=== PATIENT | female | born 1970 | race Caucasian/White ===

== ENCOUNTER 2020-11-27 07:35 | Outpatient (CLI) | payer OTHER, SELFPAY ==
--- NOTE | ~2020-11-27 | MM_ITS ---
EXAMINATION: MM screening [facility] BI w [facility] HISTORY: Screening TECHNIQUE: Craniocaudal and mediolateral oblique 3-D tomosynthesis images were obtained and synthetic 2-D images were generated. CAD analysis was submitted and interpreted. COMPARISON: Comparison to multiple prior studies sequentially, with oldest reviewed study dated 07/31. BREAST PARENCHYMAL COMPOSITION: There are scattered areas of fibroglandular density. FINDINGS: There is no evidence of suspicious mass, calcification, or architectural distortion to sugg est malignancy in either breast. There has been no suspicious interval change. IMPRESSION: 1. No mammographic evidence of malignancy. 2. Recommend routine screening mammography in one year. BI-RADS Category 1: Negative Reviewed, dictated and finalized at location A. [employer]
== END 2020-11-27 07:36 | disposition home or self-care (01) ==
PROVIDERS: PCP Internal Medicine; Visit Provider Nurse Practitioner Obstetrics & Gynecology
DX: Z12.31 Encounter for screening mammogram for malignant neoplasm of breast (principal)
CPT/HCPCS: 77063; 77067

== ENCOUNTER 2022-01-17 07:18 | Outpatient (CLI) | payer OTHER, SELFPAY ==
--- NOTE | ~2022-01-17 | MM_ITS ---
EXAMINATION: MM screening [facility] BI w [facility]all HISTORY: Screening mammogram TECHNIQUE: Craniocaudal and mediolateral oblique 3-D tomosynthesis images were obtained and synthetic 2-D images were generated. CAD analysis was submitted and interpreted. COMPARISON: 11/27/2020, 07/31/2018, 07/29/2017 bilateral screening mammogram examinations BREAST PARENCHYMAL COMPOSITION: The breasts are almost entirely fatty. FINDINGS: There is no evidence of suspicious mass, calcification, or architectural distortion to sugg est malignancy in either breast. There has been no suspicious interval change. IMPRESSION: 1. No mammographic evidence of malignancy. 2. Recommend routine screening mammography in one year. BI-RADS Category 1: Negative Reviewed, dictated and finalized at location A.
== END 2022-01-17 07:19 | disposition home or self-care (01) ==
PROVIDERS: PCP Internal Medicine; Visit Provider Internal Medicine
DX: Z12.31 Encounter for screening mammogram for malignant neoplasm of breast (principal)
CPT/HCPCS: 77063; 77067

== ENCOUNTER 2024-03-11 08:02 | Outpatient (CLI) | payer BC, SELFPAY ==
--- NOTE | ~2024-03-11 | MM_ITS ---
EXAMINATION: MM screening [facility] BI w [facility] HISTORY: Screening TECHNIQUE: Craniocaudal and mediolateral oblique 3-D tomosynthesis images were obtained and synthetic 2-D images were generated. CAD analysis was submitted and interpreted. COMPARISON: Comparison to multiple prior studies sequentially, with oldest reviewed study dated 07/01. BREAST PARENCHYMAL COMPOSITION: There are scattered areas of fibroglandular density. FINDINGS: There is no evidence of suspicious mass, calcification, or architectural distortion to sugg est malignancy in either breast. There has been no suspicious interval change. IMPRESSION: 1. No mammographic evidence of malignancy. 2. Recommend routine screening mammography in one year. BI-RADS Category 1: Negative Reviewed, dictated and finalized at location B.
== END 2024-03-11 08:03 | disposition home or self-care (01) ==
PROVIDERS: PCP Internal Medicine; Visit Provider Nurse Practitioner Obstetrics & Gynecology
DX: Z12.31 Encounter for screening mammogram for malignant neoplasm of breast (principal)
CPT/HCPCS: 77063; 77067

== ENCOUNTER 2025-04-05 09:40 | Outpatient (CLI) | payer BC, SELFPAY ==
--- NOTE | ~2025-04-05 | MM_ITS ---
EXAMINATION: MM screening nohemi BI w randall HISTORY: Screening TECHNIQUE: Craniocaudal and mediolateral oblique 3-D tomosynthesis images were obtained and synthetic 2-D images were generated. CAD analysis was submitted and interpreted. COMPARISON: Comparison to multiple prior studies sequentially, with oldest reviewed study dated 03/2016. BREAST PARENCHYMAL COMPOSITION: Not dense: There are scattered areas of fibroglandular density. FINDINGS: There is no evidence of suspicious mass, calcification, or architectural distortion to sugg est malignancy in either breast. There has been no suspicious interval change. IMPRESSION: 1. No mammographic evidence of malignancy. 2. Recommend routine screening mammography in one year. BI-RADS Category 1: Negative Reviewed, dictated and finalized at location A.
--- OUTSIDE RECORDS SUMMARY | 2025-04-05 09:47 | XMS_ITS | Encounter Summary ---
Author Organization [facility] Address [address] [place] [id number] Care Team Providers Care Advertising Clerk Name Role Phone Maury Bernal MD Primary Care Provider [phone] Encounter Details Date Type Department Care Team (Late st Contact Info) Description 07/31/2018 Abstract HEALTH INFO [facility] Scanned, Documents Social History Tobacco Use Types Packs/Day Years Used Date Smoking Tobacco: Never Assessed Comments Unknown Sex and Gender Information Value Date Recorded Sex Assigned at Not on file Legal Sex Female 5:58 PM CDT Gender Identity Not on file Sexual Orientation Not on file documented as of this encounter Plan of Treatment Not on file documented as of this encounter Visit Diagnoses Not on filedocumented in this encounter Care Teams Advertising Clerk Relationship Specialty Start Date End Date Maury Bernal MD [address] [place] [address] PCP - General 04/12/15 documented as of this encounter
--- OUTSIDE RECORDS SUMMARY | 2025-04-05 09:47 | XMS_ITS | Data Portability ---
Author Organization [facility] Address [address] [place] [address] Care Team Providers Care Waste Specialist Name Role Phone AR DAVIES Primary Care Provider Assessment Encounter Date Assessment Date Assessment LastModified by Organization Details LastModified Time 04/15/2020 04/15/2020 Annual gynecological exam performed. Patient will come back in a year unless there are new symptoms. [email or web address] Not available 04/15/2020 12:38:58 08/05/2023 08/05/2023 Annual gynecological exam performed. Patient will come back in a year unless there are new symptoms. [email or web address] Not available 08/05/2023 09:01:41 Plan of Treatment Reminders Order Date Submit Date Provider Last Modified By Organization Details Last Modified Time Details Appointments None recorded. Lab None recorded. Referral None recorded. Procedures None recorded. Surgeries None recorded. Imaging MAMMO, screening, digital, bilateral 2022 023 JOHN [facility], [address], [place], [address], 4 05:01:41 Medication Orders Vienva 0.1 mg-20 mcg tablet 2022 023 [facility] [address], [place], [address], 3 10:50:55 Aviane 0.1 mg-20 mcg [address] [facility] [id number] In [facility], [address], [place], [address], 0 13:06:34 Patient TargetsNo targets recorded. Patient InstructionsNo instructions recorded. Reason for Referral None Reported. Results Created Date Observation Date Name Description Value Unit Range Abnormal Flag Note LastModifiedBy Organization Detail LastModifiedTime 04/15/20 20 04/19/2020 pap, LB Pap test thin prep Negati ve for Intrae pithel ial Lesion or Malign robson normal ACCES SEBASTIÁN #: [id number] Sourc e: Cervi bethany/E ndoce rvica l LMP: 03/27 Date Taken : 04/15 Speci men Type: ThinP rep Vial Date Repor brayden: 2019 Clini bethany Data: Cytot ech: Gertrude Trice , CT( CP) Date Repor brayden: 2019 Speci men Adequ acy: Satis facto ry for evalu ation No endoc ervic al/tr ansfo rmati on zone compo nent prese nt Gener al Categ oriza tion: NEGAT AHSAN FOR INTRA EPITH ELIAL LESIO N OR MALIG KATEY This speci men has been maxwell zed by the ThinP rep Imagi ng Syste m, an inter activ e compu ter syste m which aster ts the lab in the scree clary of ThinP rep Pap Test slide sBrianda griffin imagi ng, the slide was revie wed by a Cytot echno logis t and/o r Patho logis t. D N A A S S A Y S R E P O R T TEST NAME RESUL TS ----- ---- ----- -- HPV High Risk Scree n (TMA) ThinP rep Vial The human papil lomav irus (HPV) High Risk Scree n is an FDA-a pprov ed in-vi tro ampli fied nucle ic acid test for the quali tativ e detec tion of E6/E7 viral mRNA. Resul ts annika napier be corre lated with patie nt prese ntati on, histo ry, cervi bethany cytol ogy and other clini bethany and labor atory findi ngs. See https ://[employer]/s ites/ defau lt/fi 018-0 3/AW- 93655 _002_ 01.pd f for malia er infor yue n. Test perfo rmed by [employer] [facility], [address], [place] [address] , Mya Saenz ra, DO, [facility] [employer] [facility] tor. HPV High Risk *HPV NOT DETEC BRAYDEN (TYPE S 16, 18, 31, 33, 35, 39, 45, 51, 52, 56, 58, 59, 66, 68) *HPV: The human papil lomav irus (HPV) High Risk Landon perez is an FDA-a pprov ed in-vi tro ampli fied nucle ic acid test for the quali tativ e detec tion of E6/E7 viral mRNA. Resul ts shoul d be corre lated with odell godwin prese ntati on, histo ry, cervi bethany cytol ogy and other clini bethany and labor atory findi ngs. See https ://[employer]/s ites/ defau lt/fi 018-0 - 34877 _002_ 01.pd f for malia reddr yue n. Test perfo rmed by [employer], [facility], [address], [place] [address] , Mya Saenz ra, DO, [employer] [facility] tor. End of t Techn ical servi jennifer provi ded by [employer] [facility], [facility], [address] [place] [address] Willard Saldana MD, [facility] tor. Case revie wed and diagn osis rende red at [employer], [facility], [address] [place] [address] Willard Saldana MD, [facility] [employer] [facility] tor. CONFI DENTI AL Not Available [facility]) [address], [place], [address], 04/19/2020 16:14:04 04/15/20 20 04/19/2020 HPV DNA, high- risk HPV high risk NOT DETECT ED normal Not Available [facility]) [address], [place], [address], 04/19/2020 16:14:05 05/31/20 21 05/31/2021 IMAGE GUIDE D PAP AND HPV REGAR DLESS image guided Pap, HPV regardless of Pap result SEE RESULT S BELOW CASE REPOR T: Cytol ogy Gynec ologi bethany Repor t Case: [id number] Autho manjinder kale Provi shelby: Jenny Mancia, JONATHAN Colle cted: 05/31 1613 Order ing Locat ion: [place] Patho log[facility] Recei michelle: 05/31 2351 First Scree n: Samantha Rubin, CT Speci men: Scree clary Pap - Image d, Cervi x STATE MENT OF ADEQU ACY: Satis facto ry for evalu ation Trans forma tion zone compo nent prese nt FINAL DIAGN OSIS: Negat ahsan for Intra epith elial Lesio n or Jeffery short (NIL) Elect keila elam jaswinder d by Samantha Rubin, CT on 021 at 5:59 PM ----- ----- ----- ----- ----- ----- ----- ----- ----- ----- ----- ----- ----- ----- ----- ----- ----- ---- HPV RESUL TS: HPV mRNA E6/E7 : No HPV mRNA Detec brayden NOTE: This high risk HPV mRNA assay detec ts fourt een high- risk HPV types (16, 18, 31, 33, 35, 39, 45, 51, 52, 56, 58, 59, 66, 68) witho ut diffe renti ation . COMME NT: Note: This speci men was revie wed by a Cytot echno logis t and/o r Patho logis t (as indic ated in this repor t) after evalu ation using the Thinp rep Imagi ng Syste m. CLINI BETHANY INFOR MATIO N: Menst rual Statu s: LMP (if appli cable ): 2020 Clini bethany Histo ry/Pr eviou s Pap: Type of Neopl corine (if appli cable ): Signi fican t Clini bethany Findi ngs: Other Histo ry: Hormo collin (if appli cable ): PAP EDUCA JIMENEZ L NOTE: The Pap Test is a scree clary test with an inher ent false negat ahsan rate. Liqui d-bas e sampl ing may decre ase, but will not elimi samantha, false negat ahsan resul ts. A negat ahsan resul t does not precl ude the prese nce and/o r devel opmen t of disea se, since the prese nce of abnor mal cells in the sampl e depen ds on the locat ion of the lesio n and sampl ing techn ique. Deyvi nued regul ar scree clary is the best metho d of cance r preve ntion . If repor brayden cytol ogic findi ng do not corre late with physi bethany and/o r histo rical findi ngs, furth er inves tigat ion is recom laurent d, as clini rosa elena gould nted. Not Available [facility] (Lab) [address], [place], [address], 06/04/2021 19:02:19 08/05/20 23 08/05/2023 IMAGE GUIDE D PAP AND HPV REGAR DLESS image guided Pap, HPV regardless of Pap result SEE RESULT S BELOW CASE REPOR T: Cytol ogy Gynec ologi bethany Repor t Case: [id number] Autho risenthiln g Provi shelby: Samantha Almonte, JUNK DEALER Colle cted: 11/07 /2023 1051 Order ing Locat ion: [place] Patho logamelia Recei michelle: 08/06 0317 First Scree n: Eleni Araujo ay, CT Rescr een: Ava Huitron ed, CT Speci men: Scree clary Pap - Image d, Cervi x STATE MENT OF ADEQU ACY: Satis facto ry for evalu ation Trans forma tion zone compo nent absen t The absen ce of an endoc ervic al compo nent was confi rmed by an addit ional landon ner. FINAL DIAGN OSIS: Negat ahsan for Intra epith elial Lesio n or Jeffery short (NIL) . Elect keila elam jaswinder d by Ava Huitron ed, CT on 2022 at 7:46 PM ----- ----- ----- ----- ----- ----- ----- ----- ----- ----- ----- ----- ----- ----- ----- ----- ----- ---- HPV RESUL TS: HPV mRNA E6/E7 : No HPV mRNA Detec brayden NOTE: This high risk HPV mRNA assay detec ts fourt een high- risk HPV types (16, 18, 31, 33, 35, 39, 45, 51, 52, 56, 58, 59, 66, 68) witho ut diffe renti ation . COMME NT: This speci men was revie wed by a Cytot echno logis t and/o r Patho logis t (as indic ated in this repor t) after evalu ation using the Thinp rep Imagi ng Syste m. CLINI BETHANY INFOR MATIO N: Menst rual Statu s: LMP (if appli cable ): Clini bethany Histo ry/Pr eviou s Pap: Type of Neopl corine (if appli cable ): Signi fican t Clini bethany Findi ngs: Other Histo ry: Hormo collin (if appli cable ): PAP EDUCA JIMENEZ L NOTE: The Pap Test is a scree clary test with an inher ent false negat ahsan rate. Liqui d-bas ed sampl ing may decre ase, but will not elimi samantha, false negat ahsan resul ts. A negat ahsan resul t does not precl ude the prese nce and/o r devel opmen t of disea se, since the prese nce of abnor mal cells in the sampl e depen ds on the locat ion of the lesio n and sampl ing techn ique. Deyvi nued regul ar scree clary is the best metho d of cance r preve ntion . If repor brayden cytol ogic findi ng do not corre late with physi bethany and/o r histo rical findi ngs, furth er inves tigat ion is recom laurent d, as clini rosa elena warra nted. Not Available [facility] (Lab) [address], [place], [address], 08/07/2023 20:48:09 12/02/19 21 MAMMO , scree clary, bilat eral No observ ation record ed. layran Not Available 2020 11:48:39 Result Notes None recorded. Problems Name Problem SNOMED Code Status Onset Date Resolution Date Notes Provider Name and Address Organization Details Recorded Time SNOMED CT Concept Completed 201705/31/2021 Encounte r for general adult medical exam with abnormal finding; Recorded Elsewher e: No Locat ion: [facility] S ource: EHR Surgical Device Sales Representative leila: N Lucinda ce ID: [id number] Vaughn lable Time: 03:30:00 PM Tamiko Brandon [facility] 13:16:[address] Concept Completed 201805/31/2021 Encntr for general adult medical exam w/o abnormal findings ;Recorde d Elsewher e: No Locat ion: [facility] S ource: EHR Surgical Device Sales Representative leila: N Margaritati ce ID: 0001 Vaughn lable Time: 02:15:00 PM Tamiko jacobs [facility] 13:16:37 Hypertro phy of uterus [id number] Completed 201705/31/2021 Enlarged uterus;R ecorded Elsewher e: No [facility] leila: N Practi ce ID: [id number] Vaughn lable Time: 03:30:00 PM Tamiko jacobs [facility] 13:16:[address] Concept Completed 201805/31/2021 Encntr for physician assistant exam (general ) (routine ) w/o abn findings ;Recorde d Elsewher e: No Locat ion: [facility] S ource: [facility] leila: N Practi ce ID: [id number] Vaughn lable Time: 02:15:00 PM [facility] 13:16:[address] Concept Completed 201705/31/2021 Encounte r for general physician assistant exam with abnormal findings ;Recorde d Elsewher e: No Locat ion: [facility] S ource: [facility] leila: N Practi ce ID: 0001 Vaughn lable Time: 03:30:00 PM Tamiko jacobs [facility] 13:16:46 Screenin g for malignan t neoplasm of rectum Completed 201805/31/2021 Encounte r for screenin g for malignan t neoplasm of rectum;R ecorded Elsewher e: No Locat ion: [facility] S ource: [facility] leila: N Practi ce ID: [id number] Vaughn lable Time: 02:15:00 PM Tamiko jacobs [facility] 13:16:35 Problem Notes None recorded. Procedures Surgical History Date Name Laterality Status Provider Name and Address Organization Details Recorded Time Colposcopy completed [facility] 05/31/2021 15:20:20 Date of Last Mammogram completed [facility] 05/31/2021 15:20:25 1 completed Tamiko Brandon [facility] 05/31/2021 13:19:14 0 Date of Last Pap Smear [facility] 04/15/2020 12:57:10 7 section completed [facility] 04/15/2020 12:59:35 4 section completed [facility] 04/15/2020 12:59:32 Imaging Results None recorded. Procedure Notes None recorded. Medical Equipment None Reported. Allergies Allergen ID Allergen Name Allergen Category Reaction Reaction Severity Criticality Documentation Date Start Date Code Code System Note Provider Name and Address Organization Details Recorded Time 1357 Product containin g penicilli n (product) medicatio n Not available Not available Not available 04/15/2020 78882 [id number] SNOMED Arabellajenni Garrido [facility] 0 12:56:49 Medications Name Sig Start Date Stop Date Status Note LastModified by Organization Details LastModified Time Aviane 2020 completed Not Available Not Available Not Available Vienva 0.1 mg-20 mcg tablet TAKE 1 TABLET BY MOUTH EVERY DAY 024 active Not Available Not Available Not Avai lable Vitals Date Recorded Body height Body mass index (BMI) Body weight Systolic And Diastolic Provider Name and Address Organization Details Last Updated DateTime 04/15/2020 155.58 cm 27 kg/m2 96946.3 g 119/74 mm[Hg] [facility] 04/15/2020 12:56:25 Date Recorded Body height Body mass index (BMI) Body weight Systolic And Diastolic Provider Name and Address Organization Details Last Updated DateTime 05/31/2021 155.58 cm 29 kg/m2 47517.82 g 128/81 mm[Hg] Tamiko Brandon [facility] 05/31/2021 15:20:09 Date Recorded Body weight Systolic And Diastolic Provider Name and Address Organization Details Last Updated DateTime 08/05/2023 63206.49 g 105/66 mm[Hg] Kasey Ashraf [facility] 08/05/2023 09:27:19 Social History Question Answer Notes LastModified by [employer] Details LastModified Time Tobacco Smoking Status Never Smoker Arielle Lindsay reynaldo [facility] 04/10/2020 15:37:02 What Was The Date Of Your Most Recent Tobacco Screening? 04/15/2020 [email or web address] Information not available 04/15/2020 Are You Sexually Active? Yes Information not available 05/31/2021 How Much Tobacco Do You Smoke? No [email or web address] Information not available 04/15/2020 Sex: Unknown Functional Status Question Answer Note LastModified by Organizat bubl Details LastModified Time What is your level of alcohol consumption? Occasional [email or web address] Information not available 04/15/2020 Do you or have you ever used smokeless tobacco? Never used smokeless tobacco [email or web address] Information not available 04/15/2020 Do you or have you ever used e-cigarettes or vape? Never used electronic cigarettes [email or web address] Information not available 04/15/2020 What is your exercise level? Occasional [email or web address] Information not available 04/15/2020 Mental Status None recorded. Family History Relationship Description Onset Age of this Age Resolved Age Notes LastModified by Organization Details LastModified Time Mother Disorder of cardiovascul ar system [email or web address] Not available 2019 15:36:42 Maternal Grandfather Disorder of cardiovascul ar system [email or web address] Not available 2019 15:36:42 Maternal Grandfather Diabetes mellitus [email or web address] Not available 2019 15:36:59 Maternal Grandmother Disorder of cardiovascul ar system [email or web address] Not available 2019 15:36:42 Father Diabetes mellitus [email or web address] Not available 2019 15:36:50 Medical History Condition Response Allergies (Food, seasonal, environmental ) N Other N Breast Cancer N Drug/Latex Allergies/Reactions N Blood Transfusion N Dermatologic Disorders N Lung Disease N Defects or Inherited Disease N Breast Problem N Gestational Diabetes N Hematologic disorders N Anesthesia Complications N History of STI N Deep Vein Thrombosis N Polycystic ovary syndrome N Anxiety Disorder N Autoimmune disease N Arthritis N Infertility N Polyps N Acid Reflux (GERD) N History of abnormal pap N Cancer N Stroke N Varicosities N Neurologic/Epilepsy N Endometriosis N High Cholesterol N Headaches N Fibromyalgia N Kidney Disease N Heart Problems N Kidney or Bladder Problems N Thyroid Problems N GI Problems N Eating Disorder N Anemia N Art (IVF or FET) N Psychiatric Illness N Ovarian Cancer N Diabetes N Pulmonary (TB, Asthma) N Hepatitis/Liver Disease N No Past Medical History N Eczema N Urinary Tract Infection N Abuse/Domestic Violence N Asthma N Trauma/Violence N Depression/ depression N Heart Disease N Pre-Eclampsia N Hypertension N Osteoporosis N Thrombophilias N Gynecological History Statement/Question Response Abnormal Pap N Date of Last Mammogram 12/01/2020 Date of LMP 09/12/2022 On BCP's at Conception? N STIs/STDs N HPV Vaccine N Colposcopy 05/29/2021 12/01/2020 Current Control Method BCPs Sexually Active? Y Menses Monthly N Age of first menstrual cycle 16 Date of Last Pap Smear 04/15/2020 Sexual Problems? N LMP Approximate Obstetrics History GPAL:G 2 P 2 0 0 2 Type Value Full Term 2 Living 2 Total 2 Past Encounters Encounter ID Performer Location Encounter Start Date Encounter Closed Date Diagnosis/Indication Diagnosis SNOMED-CT Code Diagnosis ICD10 Code Diagnosis Note [id number] [facility] [address] [address] 04/15/2020 11:55:00 04/15/2020 13:23:18 Gynecologic examination 69676012 Z01.419 Suggested Calcium with Vitamin D 1200-1500m g daily. Patient advised to get an annual flu shot in the fall and she could obtain at [facility] or [facility] clinic. Also to obtain TDap vaccinatio n if you have not had one in the last 10 years. Recommend yearly mammograms . Encouraged monthly self breast exams. Encourage safe sexual practices, to use condoms and limit partners if not already in a monogamous relationsh ip. Engage in daily exercise of low impact aerobic exercise 45-60 minutes 4-5 times weekly. Avoid tobacco and illicit drugs as well as using moderation with alcohol intake less than 1-2 8 oz beverages daily. This lifestyle behavior pattern will lead to less health conditions and longer life span. If BMI greater than 25 weight watchers or dietary consult advised. All questions have been answered. Patient appears to understand informatio n, but if you have any questions please call or respond to this email. [facility] ion care management [id number] Z30.9 [id number] Jenny AsherFABIENConrad [place] [address] [address] 05/31/2021 15:08:11 05/31/2021 16:48:02 Gynecologic examination 43021703 Z01.419 Suggested Calcium with Vitamin D 1200-1500m g daily. Patient advised to get an annual flu shot in the fall and she could obtain at [facility] or [facility] care [facility]. Also to obtain TDap vaccinatio n if you have not had one in the last 10 years. Recommend yearly mammograms . Encouraged monthly self breast exams. Encourage safe sexual practices, to use condoms and limit partners if not already in a monogamous relationsh ip. Engage in daily exercise of low impact aerobic exercise 45-60 minutes 4-5 times weekly. Avoid tobacco and illicit drugs as well as using moderation with alcohol intake less than 1-2 8 oz beverages daily. This lifestyle behavior pattern will lead to less health conditions and longer life span. If BMI greater than 25 weight watchers or dietary consult advised. All questions have been answered. Patient appears to understand informatio n, but if you have any questions please call or respond to this email. [id number] JOHANNA Albarran [place] [address] [address] 08/05/2023 09:19:37 08/05/2023 11:16:15 Gynecologic examination 29239189 Z01.419 WWEpap updatedSTI testing declinedma mmogram order givencolon oscopy is scheduledU TD with PCP for routine labsRTC in 1 yr or sooner if needed Take Calcium with Vitamin D daily.Do monthly self breast exams.It is advised to get annual flu shot in the fall and she could obtain at [facility] or [facility] care clinic. If you haven't received the Tdap vaccine in the last 10 years you should obtain one as well.Have mammogram yearly and colonoscop y every 5-10 years depending on findings and history.En jerry in daily exercise of low impact aerobic exercise 45-60 minutes 4-5 times weekly. Avoid tobacco and illicit drugs as well as using moderation with alcohol intake less than 1-2 8 oz beverages daily. This lifestyle behavior pattern will lead to less health conditions and longer life span. If BMI greater than 25 weight watchers or dietary consult advised.Qu estions have been answered. Patient appears to understand instructio ns, but if you have any further questions call or respond to this email Screening for malignant neoplasm of breast [id number] Z12.39 Contracept ion care management [id number] Z30.9 desires to continue current OCPshe is aware of the r/b, denies any contraindi cationsdis cussed checking menopausal status next yearrefill s sent Health Concerns Section Related Observation LastModified by Organization Detai ls LastModified Time None Recorded Concern Status LastModified by Organization Details LastModified Time None Recorded Advance Directives Directive None Recorded Payers Insurance Date Sequence Insurance Name Policy Number Policy Myers Covered Member ID Myers Member ID Guarantor Name 08/05/2023 1 SELF INSURED PLANS Rosio Prakash [id number] Rosio Prakash 07/30/2023 1 [employer] (POS) [id number] Xu Prakash [id number] Rosio Prakash 09/15/2023 1 [place] [id number] Rosio Prakash [id number] Rosio Prakash Notes Date Note Type Note Provider Name and Address Organization Details Recorded Time 04/15/2020 text/html Annual GYNReport ed bypatient.History:no gynecologic complaints Menstrual cycle:Normal menses Urinary symptoms:No hematuria; No incontinence Vulva:No genital lesion Vagina:Normal vaginal discharge Breast:No breast pain; No breast lump; No nipple discharge Current Contraception:Satisf ied with current contraception; Monogamous relationship; Oral contraceptives Sexual complaints:No sexual complaints; No pain during intercourse; Normal libido Menopausal Symptoms:No menopausal symptoms; Normal vaginal lubrication Psychological symptoms:No depression; No anxiety; No PMDD Preventive measures:Encourage self breast examination; Encourage regular exercise; Encourage no tobacco use; Encourage regular mammograms starting age 40; Followed with Q3 year pap smear and high risk HPV typing; Needs to schedule mammogram JOHANNA [facility] [address], [place], [address], [facility] 04/15/2020 13:07:51 05/31/2021 text/html Annual GYNReport ed bypatient.Menstrual cycle:Normal menses Urinary symptoms:No hematuria; No incontinence Vulva:No genital lesion Vagina:Normal vaginal discharge Breast:No breast pain; No breast lump; No nipple discharge Sexual complaints:No sexual complaints; No pain during intercourse; Normal libido Menopausal Symptoms:No menopausal symptoms; Normal vaginal lubrication Psychological symptoms:No depression; No anxiety; No PMDD Covid vaccine in January. Jenny jacobs, [facility] 05/31/2021 15:50:14 08/05/2023 text/html Annual GYNReport ed bypatient.Menstrual cycle:Normal menses Urinary symptoms:No hematuria; No incontinence Vulva:No genital lesion Vagina:Normal vaginal discharge Breast:No breast pain; No breast lump; No nipple discharge Current Contraception:Satisf ied with current contraception; Oral contraceptives Sexual complaints:No sexual complaints; No pain during intercourse; Normal libido Menopausal Symptoms:No menopausal symptoms; Normal vaginal lubrication Psychological symptoms:No depression; No anxiety; No PMDD Preventive measures:Encourage self breast examination; Encourage regular exercise; Encourage no tobacco use; Encourage regular mammograms starting age 40Notes:OCP for BC, happy with this methodLMP enies hx of DVT/PE, HTN, Stroke/MS, cancer, liver disease, or migrainesshe is a non-smokerdenies any medical conditionsUPT with PCP for routine labsmammogram last olonoscopy scheduled JOHANNA Albarran [address], [place], [id number], [facility] 08/05/2023 10:51:43 OBGyn Episode Ob Episode Information Episode Created Date Number of Fetuses Patient Bloodtype Patient rh Status Prepregnancy Weight lbs Domestic Partner Domestic Partner Phone Father Name Practice Professional Status 04/15/20 20 1 CLOSED Fetus Data First Name Last Name Admitted to NICU Weight (g) Sex Living Outcome Pediatric Complications Fetus ID Race Codes Race Delivery Type 4535.92 M Full Term [id number] Primary Adria Calculation Initial Adria Date Initial Exam Date Initial Exam Provider Initial Ultrasound Date Last Menstrual Period Date Ultra Sound Weeks Gestation 0 Eighteen To Twenty Week Adria Update Ultra Sound Date Fundal Height At Umbil Quickening Date Ultra Sound Latest Weeks Gestation Final Adria Confirmed By Final Adria Confirmed Date Final Adria Date Ultra Sound Latest Days Gestation 0 0 Menstrual History Last Menstrual Date Menses Monthly On Bcp Conception Prior Menses Frequency Hcg Plus Date Menarche Onset Age Delivery Information Delivery Date Delivery Type Labor Anesthesia Weeks Gestation Incision Type Labor Labor Length Hrs Delivered By Post Complications Tubal Sterilization Discharge Date Comments 4 Discharge Information Feeding Method Contraceptive Method Maternal HG B and HCT Levels Ob Episode Information Episode Created Date Number of Fetuses Patient Bloodtype Patient rh Status Prepregnancy Weight lbs Domestic Partner Domestic Partner Phone Father Name Practice Professional Status 04/15/20 20 1 CLOSED Fetus Data First Name Last Name Admitted to NICU Weight (g) Sex Living Outcome Pediatric Complications Fetus ID Race Codes Race Delivery Type 3175.14 4 F Full Term [id number] Repeat Adria Calculation Initial Adria Date Initial Exam Date Initial Exam Provider Initial Ultrasound Date Last Menstrual Period Date Ultra Sound Weeks Gestation 0 Eighteen To Twenty Week Adria Update Ultra Sound Date Fundal Height At Umbil Quickening Date Ultra Sound Latest Weeks Gestation Final Adria Confirmed By Final Adria Confirmed Date Final Adria Date Ultra Sound Latest Days Gestation 0 0 Menstrual History Last Menstrual Date Menses Monthly On Bcp Conception Prior Menses Frequency Hcg Plus Date Menarche Onset Age Delivery Information Delivery Date Delivery Type Labor Anesthesia Weeks Gestation Incision Type Labor Labor Length Hrs Delivered By Post Complications Tubal Sterilization Discharge Date Comments 7 Discharge Information Feeding Method Contraceptive Method Maternal HG B and HCT Levels
--- OUTSIDE RECORDS SUMMARY | 2025-04-05 09:47 | XMS_ITS | Clinical Summary ---
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 10/27/2023 Active Active Problems Problem Noted Date Diagnosed Date Hypertrophy of uterus 12/15/2017 Overview (09/23/2024): Enlarged uterus;Recorded Elsewhere: No Location: [facility] Source: EHR Chronic: N Practice ID: [id number] Billable Time: 03:30:00 PM Resolved Problems Problem Noted Date Diagnosed Date Resolved Date Screening for colon cancer 12/29/2023 0 01/05/2024 Screening for colon cancer 12/29/2023 0 02/23/2024 Immunizations Immunization Administration Dates Next Due Fluzone (IIV3, Trivalent, 0.5 ML Prefilled Syrin ge) 09/23/2024 Fluzone 6 Months+ Quad (0.5 mL Prefilled Syringe ) 08/04/2023 MODERNA COVID-19 (12+) MRNA, LNP-S, PF, 100 MCG/ 0.5 ML DOSE 01/31/2021,01/02/2021 Shingrix 08/07/2022,05/22/2022 Tdap (Generic) 01/15/2018 Family History Medical History Relation Comments No Known Problems Brother Dementia Father Diabetes Father Diabetes Maternal Grandfather Heart Disease Maternal Grandfather PR Maternal Grandfather Aneurysm Maternal Grandmother AAA Atrial fibrillation Mother No Known Problems Sister Relation Status Comments Brother Alive Daughter Alive Father Alive Maternal Grandfather Maternal Grandmother Mother Alive Paternal Grandfather Paternal Grandmother Sister Alive Son Alive Social History Tobacco Use Types Packs/Day Years Used Date Smoking Tobacco: Never Smokeless Tobacco: Never Tobacco Cessation:Counseling Given: Not Answered Alcohol Use Standard Drinks/Week Comments Yes 0 (1 standard drink = 0.6 oz pur e alcohol) 5 drinks per month PHQ-2 Answer Date Recorded Patient Health Questionnaire-2 Score 0 09/23/2024 Comments No Sex and Gender Information Value Date Recorded Sex Assigned at Not on file Legal Sex Female 5:58 PM CDT Gender Identity Not on file Sexual Orientation Not on file Last Filed Vital Signs Vital Sign Reading Time Taken Comments Blood Pressure 122/80 09/23/2024 3:54 PM [facility] Pulse 101 09/23/2024 3:54 PM [facility] Temperature 37 C (98.6 F) 09/23/2024 3:54 PM [facility] Respiratory Rate 18 09/23/2024 3:54 PM [facility] Oxygen Saturation 96% 09/23/2024 3:54 PM [facility] Inhaled Oxygen Concentration - - Weight 70.1 kg (154 lb 8 oz) 09/23/2024 3:54 PM [facility] Height 160 cm (5' 3) 09/23/2024 3:54 PM [facility] Body Mass Index 27.37 09/23/2024 3:54 PM [facility] Plan of Treatment Health Maintenance Due Date Last Done Comments Hepatitis B Vaccines (1 of 3 - 19+ 3-dose series) 01/21/1991 Cervical Cancer Screening Pap with HPV Testing (Age 30 to 64) Every 5 Years 01/21/2002 Pneumococcal Vaccine: 50+ Years (1 of 1 - PCV) 01/21/2022 COVID-19 Vaccine ( season) 2024 01/31/2021, 01/31/2021, 01/02/2021 PHQ-2 (Physician Robinson) 09/29/2024 09/23/2024 Annual Physical 09/23/2025 09/23/2024, 08/04/2023 Mammogram Screening 03/11/2026 03/11/2024, 01/17/2022, 11/27/2020, Additional history exists Cervical Cancer Screening Pap Smear (Age 30 to 64) Every 3 Years 08/05/2026 08/05/2023, 05/31/2021 Cervical Cancer Screening with HPV 08/05/2026 DTaP, Tdap and Td Vaccines (2 - Td or Tdap) 01/16/2028 01/15/2018 Colorectal Cancer Screening Colonoscopy (10 Years) 02/18/2034 02/19/2024, 02/19/2024 Zoster Vaccines Completed 08/07/2022, 05/22/2022 Hepatitis C Completed 08/05/2023 Meningococcal B Vaccine Aged Out No l onger eligible based on patient's age to complete this topic Meningococcal Vaccine Aged Out No maikol connor eligible based on patient's age to complete this topic RSV Immunizations Under 20 Months Aged Out No longer eligible based on patient's age to complete this topic Medical Devices Implanted Type Area 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 Wire 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 Helper Device Identifier Shelf Expiration Date Model / Serial / Lot Left Wrist Plate And Screws Procedures Procedure Name Priority Date/Time Associated Diagnosis Comments MAMMOGRAM GENERIC (SCAN ORDER) 03/11/2024 COLONOSCOPY Routine 02/19/2024 10:38 AM CDT HEPATITIS C ANTIBODY W/RFX TO HCV RNA Routine 08/05/2023 9:08 AM [facility] Routine general medical examination at a health care facility from Last 3 Months or Most Recently Relevant to Health Maintenance Results * MAMMOGRAM GENERIC (SCAN ORDER) (03/11/2024) Anatomical Region Laterality Modality Other 03/11/2024 [facility] Scanned SCANNING Final Resu lt * HEPATITIS C ANTIBODY W/RFX TO HCV RNA (08/05/2023 9:08 AM [facility]) HEPATITIS C AB Non Reactive Non Reacti [facility] 1 INTERPRETATION Comment [facility] 1 Comment: Not infected with HCV unless early or acute infection is suspected (which may be delayed in an immunocompromised individual), or other evidence exists to indicate HCV infection. 08/05/2023 9:08 AM [facility] 08/05/2023 Narrative [facility] - 08/06/2023 5:08 AM [facility] Performed at: 01 - [facility] [address] [id number] [employer]weaver: Geovanni Molina PhD, Phone: [phone] us Maury Bernal MD LABORATORY Final Result [facility] [address] [place] [address] [facility] 1 from Last 3 Months or Most Recently Relevant to Health Maintenance [place] [address] [address] [address] Care Teams Battery Container Tester Aluminum Relationship Specialty Start Date End Date aMury Bernal MD [address] [id number] PCP - General 04/12/15
== END 2025-04-05 09:41 | disposition home or self-care (01) ==
PROVIDERS: PCP Internal Medicine; Visit Provider Nurse Practitioner Obstetrics & Gynecology
DX: Z12.31 Encounter for screening mammogram for malignant neoplasm of breast (principal)
CPT/HCPCS: 77063; 77067